=== PATIENT | male | born 1980 | race Two or more races ===

== ENCOUNTER 2023-12-24 10:40 | Emergency (ER) | payer BC ==
[~2023-12-24] VITALS: Ht 185.4 cm; Wt 122.5 kg
[2023-12-24 10:56] VITALS: BP 133/80; TEMP 98.6; O2SAT 99
== END 2023-12-24 11:53 | disposition left against medical advice (07) ==
LOC: ER 10:52
DX: Z00.00 Encounter for general adult medical examination without abnormal findings (principal); Z53.21 Procedure and treatment not carried out due to patient leaving prior to being seen by health care provider